=== PATIENT | female | born 1965 | race Two or more races ===

== ENCOUNTER 2022-12-13 10:28 | Emergency (ER) | payer OTHER ==
[2022-12-13 10:45] VITALS: TEMP 98.6; BMI 33.4
[2022-12-13] MEDS ORDERED: SODIUM CHLORIDE 0.9% 500 ML INFUS.BAG IV ONE (11:27)
[2022-12-13 11:54] LABS: BASO % 1.1 % (0-2.0); EOS % 4.1 % (0-4.5); HEMATOCRIT 31.1 % (32.4-45.2); MCH 24.3 pg (25.7-33.7); MCHC 32.2 g/dl (32.0-36.0); MEAN CELL VOLUME 75.6 fl (80-96); MEAN PLT VOLUME 9.1 fl (7.5-11.1); MONO % 6.8 % (3.8-10.2); PLATELET COUNT 247 10^3/uL (134-434); RBC 4.11 M/mm3 (3.60-5.2); RDW 15.6 % (11.6-15.6); WHITE BLOOD COUNT 3.8 K/mm3 (4.0-10.0)
[2022-12-13 11:59] LABS: INR 1.05 (0.83-1.09); PROTHROMBIN TIME (PATIENT) 12.2 SEC (9.7-13.0)
[2022-12-13 12:01] LABS: ACTIVATED PTT 30.2 SECONDS (25.2-36.5)
[2022-12-13 12:08] LABS: POTASSIUM 4.5 mmol/L (3.5-5.1)
[2022-12-13 12:10] LABS: BLOOD UREA NITROGEN 17.6 mg/dL (7-18); CALCIUM 9.1 mg/dL (8.5-10.1)
[2022-12-13 12:11] LABS: ALBUMIN 3.5 g/dl (3.4-5.0)
[2022-12-13 12:14] LABS: CREATININE 0.7 mg/dL (0.55-1.3)
[2022-12-13 12:16] LABS: BILIRUBIN,TOTAL 0.3 mg/dL (0.2-1)
[2022-12-13 15:00] VITALS: BP 109/73; PULSE 70; RESP 18
[2022-12-13 15:42] LABS: EPI CELLS 13 /uL (0-25.1); HYALINE CASTS 0 /uL (0-3.1); URINE APPEARANCE TURBID; URINE BACTERIA 6 /uL (0-1359); URINE BILIRUBIN NEGATIVE (NEGATIVE); URINE COLOR RED; URINE GLUCOSE (UA) NEGATIVE (NEGATIVE); URINE KETONE NEGATIVE (NEGATIVE); URINE LEUK ESTERASE 1+ (NEGATIVE); URINE NITRITE NEGATIVE (NEGATIVE); URINE PROTEIN 1+ (NEGATIVE); URINE RBC 29533 /uL (0-23.9); URINE UROBILINOGEN 0.2 mg/dL (0.2-1.0); URINE WBC 26 /uL (0-25.8)
== END 2022-12-13 15:13 | disposition home or self-care (01) ==
LOC: JER 10:28
DX: N85.00 Endometrial hyperplasia, unspecified (principal); N83.202 Unspecified ovarian cyst, left side; N93.9 Abnormal uterine and vaginal bleeding, unspecified
CPT/HCPCS: 36415; 76830-TC; 80053; 81003; 85025; 85610; 85730; 86850; 86900; 86901; 87086; 99284-25

== ENCOUNTER 2023-11-08 11:49 | Observation (INO) | payer OTHER ==
[2023-11-08 11:53] VITALS: BMI 35.9
[2023-11-08] MEDS ORDERED: ACETAMINOPHEN INJECTION 100 ML IVPB ONE (13:07)
[2023-11-08] MEDS: ACETAMINOPHEN 1000 MG/100 ML BAG IVPB ONE (13:29)
[2023-11-08 13:31] LABS: BASO % 1.1 % (0-2.0); EOS % 2.6 % (0-4.5); HEMATOCRIT 38.2 % (32.4-45.2); HEMOGLOBIN 13.3 GM/dL (10.7-15.3); LYMPH % 34.6 % (8-40); MCH 27.9 pg (25.7-33.7); MCHC 34.7 g/dl (32.0-36.0); MEAN CELL VOLUME 80.6 fl (80-96); MEAN PLT VOLUME 8.6 fl (7.5-11.1); MONO % 6.6 % (3.8-10.2); NEUT % 55.1 % (42.8-82.8); PLATELET COUNT 222 10^3/uL (134-434); RBC 4.74 M/mm3 (3.60-5.2); RDW 14.7 % (11.6-15.6); WHITE BLOOD COUNT 4.3 K/mm3 (4.0-10.0)
[2023-11-08 13:39] LABS: PROTHROMBIN TIME (PATIENT) 11.5 SEC (9.7-13.0)
[2023-11-08 13:41] LABS: ACTIVATED PTT 30.7 SECONDS (25.2-36.5)
[2023-11-08 13:59] LABS: POTASSIUM 4.7 mmol/L (3.5-5.1)
[2023-11-08 14:01] LABS: ALBUMIN 3.9 g/dl (3.4-5.0); BLOOD UREA NITROGEN 17.6 mg/dL (7-18); CALCIUM 9.1 mg/dL (8.5-10.1); MAGNESIUM 2.1 mg/dL (1.8-2.4)
[2023-11-08 14:05] LABS: CREATININE 0.6 mg/dL (0.55-1.3)
[2023-11-08 14:06] LABS: BILIRUBIN,TOTAL 0.4 mg/dL (0.2-1); TOT PROT 7.6 g/dl (6.4-8.2)
[2023-11-08 19:28] LABS: CHOLESTEROL 219 mg/dL (50-200)
[2023-11-08 19:30] LABS: LDL CHOLESTEROL (ONLY SJRH) 150 mg/dL (5-100)
[2023-11-08 19:31] LABS: HDL CHOLESTEROL 54 mg/dL (40-60)
[2023-11-09] MEDS: traMADol HCL 50 MG TABLET PO PRN (01:59)
[2023-11-09 05:55] VITALS: RESP 18
[2023-11-09] MEDS: INSULIN ASPART SLIDING SCALE (NOVOLOG) 1 VIAL SQ SCH (06:01)
[2023-11-09 07:59] LABS: POTASSIUM 4.1 mmol/L (3.5-5.1)
[2023-11-09 08:07] LABS: CALCIUM 8.6 mg/dL (8.5-10.1)
[2023-11-09 08:08] LABS: ALBUMIN 3.4 g/dl (3.4-5.0); BLOOD UREA NITROGEN 14.6 mg/dL (7-18)
[2023-11-09 08:10] LABS: CREATININE 0.5 mg/dL (0.55-1.3)
[2023-11-09 08:11] LABS: PHOSPHOROUS 3.6 mg/dL (2.5-4.9)
[2023-11-09 08:12] LABS: BILIRUBIN,TOTAL 0.4 mg/dL (0.2-1); TOT PROT 6.7 g/dl (6.4-8.2)
[2023-11-09 08:32] LABS: BASO % 1.1 % (0-2.0); HEMATOCRIT 37.8 % (32.4-45.2); HEMOGLOBIN 13.3 GM/dL (10.7-15.3); LYMPH % 50.9 % (8-40); MCH 27.8 pg (25.7-33.7); MCHC 35.1 g/dl (32.0-36.0); MEAN CELL VOLUME 79.3 fl (80-96); MEAN PLT VOLUME 8.9 fl (7.5-11.1); MONO % 8.7 % (3.8-10.2); NEUT % 35.3 % (42.8-82.8); PLATELET COUNT 208 10^3/uL (134-434); RBC 4.76 M/mm3 (3.60-5.2); RDW 14.8 % (11.6-15.6); WHITE BLOOD COUNT 3.7 K/mm3 (4.0-10.0)
[2023-11-09] MEDS: ASPIRIN COATED 81 MG TABLET.EC PO SCH (09:45)
[2023-11-09] MEDS: ATORVASTATIN CA 40 MG TABLET (FP) PO SCH (21:02)
[2023-11-10] MEDS: metoPROLOL SUCCINATE 25 MG TAB.SR.24H (FP) PO SCH (10:02)
[2023-11-10] MEDS: RAMIPRIL 2.5 MG CAPSULE PO SCH (10:03)
[2023-11-10] MEDS ORDERED: KETOROLAC TROMETHAMINE 60 MG/2 ML VIAL IM ONE (15:15)
[2023-11-10] MEDS: KETOROLAC TROMETHAMINE 30 MG/1 ML VIAL IM ONE (15:50)
[2023-11-11] MEDS: LEVOTHYROXINE NA 25 MCG TABLET (FP) PO SCH (06:16)
[2023-11-11 14:21] VITALS: BP 119/73; PULSE 60; TEMP 98.2
== END 2023-11-11 18:00 | disposition home or self-care (01) ==
LOC: JER 11:49 → JERBED 16:18 → J4S 21:00
PROVIDERS: ADMIT Internal Medicine; ATTEND Internal Medicine
PROC: 3E033NZ Introduction of Analgesics, Hypnotics, Sedatives into Peripheral Vein, Percutaneous Approach (ICD-10-PCS; principal; 2023-11-08)
DX: M25.562 Pain in left knee (principal); M25.561 Pain in right knee; I25.10 Atherosclerotic heart disease of native coronary artery without angina pectoris; E78.5 Hyperlipidemia, unspecified; G89.29 Other chronic pain; M54.2 Cervicalgia; E11.9 Type 2 diabetes mellitus without complications; R07.9 Chest pain, unspecified; D64.9 Anemia, unspecified; M19.90 Unspecified osteoarthritis, unspecified site; K21.9 Gastro-esophageal reflux disease without esophagitis; M54.9 Dorsalgia, unspecified; R00.2 Palpitations; R06.02 Shortness of breath
CPT/HCPCS: 0241U-QW; 36415; 71045-TC-FY; 73564-TC-LT-FY; 76830-TC; 80053; 80061; 82962; 83036; 83735; 84100; 84439; 84443; 84484; 84702; 84703; 85025; 85610; 85730; 93005; 93010; 93306-TC; 93970-TC; 94010; 96374; 96375; 97116-GP; 97161-GP; 99285-25; G0378; J0131